=== PATIENT | female | born 1995 | race Caucasian/White ===

== ENCOUNTER 2018-11-27 17:21 | Emergency (ER) | payer BC ==
[2018-11-27 17:41] VITALS: BP 124/65
[2018-11-27] MEDS ORDERED: Ibuprofen TAB* 400 MG PO ONE (18:33)
--- NOTE | 2018-11-27 18:34 | UC ---
Throat Pain/Nasal Gerry HPI - HPI Summary HPI Summary: 23 y/o female presents to the urgent care c/o sore throat and nasal congestion congestion w/ clear nasal discharge, body aches and feels feverish since this morning. Pain w/ swallowing is 6/10 associated w/ mild IBARRA now . Pt has not taken any medications to alleviate symptoms. Pt denies dizziness, SOB, cough, chest pain, abdominal pain, N/V/D or rash. Pt is UTD w/ all vaccines for her age - History of Current Complaint Chief Complaint: UCGeneralIllness Stated Complaint: ST,CONGESTION,FEVER Time Seen by Provider: 11/27/18 18:21 Hx Obtained From: Patient Hx Last Menstrual Period: 3 days ago started ?: No Onset/Duration: Gradual Onset, Lasting Hours - 12 hrs Severity: Moderate Pain Intensity: 6 Pain Scale Used: 0-10 Numeric Cough: None Associated Signs & Symptoms: Positive: Nasal Discharge - clear, Fever. Negative : Dysphagia - Epiglottits Risk Factors Epiglottis Risk Factors: Negative - Allergies/Home Medications Allergies/Adverse Reactions: Allergies Allergy/AdvReac Type Severity Reaction Status Date / Time oxycodone Allergy Swelling Verified 11/27/18 17:42 Of Face,Lips,& Throat Home Medications: Home Medications Norgestimate-Ethinyl Estradiol [Dli-Az-Dcomkgug 0.18/0.215/0.25 mg-25 Mcg] 1 tab PO DAILY 11/27/18 [History Confirmed 11/27/18] PMH/Surg Hx/FS Hx/Imm Hx Previously Healthy: Yes - Pt denies PMHX - Surgical History Surgical History: Yes Surgery Procedure, Year, and Place: Fibroids removed from left breast - Family History Known Family History: Positive: None - Pt denies FMHX - Social History Occupation: Student Lives: With Family Alcohol Use: Rare Substance Use Type: None Smoking Status (MU): Never Smoked Tobacco - Immunization History Vaccination Up to Date: Yes Review of Systems All Other Systems Reviewed And Are Negative: Yes Constitutional: Positive: Fever, Chills Skin: Positive: Negative Eyes: Positive: Negative ENT: Positive: Sore Throat Respiratory: Positive: Negative Cardiovascular: Positive: Negative Gastrointestinal: Positive: Negative Genitourinary: Positive: Negative Motor: Positive: Negative Neurovascular: Positive: Negative Musculoskeletal: Positive: Negative Neurological: Positive: Headache Psychological: Positive: Negative Is Patient Immunocompromised?: No Physical Exam - Summary Physical Exam Summary: VITAL SIGNS: Reviewed. GENERAL: Patient is a well developed and nourished female adolescent who is sitting comfortable in the examining table. Patient is not in any acute respiratory distress. HEAD AND FACE: No signs of trauma. No ecchymosis, hematomas or skull depressions. No sinus tenderness. EYES: PERRLA, EOMI x 2, No injected conjunctiva, no nystagmus. No photophobia. EARS: Hearing grossly intact. Ear canals and tympanic membranes are within normal limits. MOUTH: Positive pharynx with erythema, exudates, palatal petechiae. B/L tonsillar enlargement with exudate. Uvula in midline. NECK: Supple, trachea is midline, Positive anterior cervical lymphadenopathy, no JVD, no carotid bruit, no c-spine tenderness, neck with full ROM. No meningeal signs, no Kernig's or brudzinskis signs. CHEST: Symmetric, no tenderness at palpation LUNGS: Clear to auscultation bilaterally. No wheezing or crackles. CVS: Regular rate and rhythm, S1 and S2 present, no murmurs or gallops appreciated. ABDOMEN: Soft, non-tender. No signs of distention. No rebound no guarding, and no masses palpated. Bowel sounds are normal. EXTREMITIES: FROM in all major joints, no edema, no cyanosis or clubbing. NEURO: Alert and oriented x 3. No acute neurological deficits. Speech is normal and follows commands. SKIN: Dry and warm Triage Information Reviewed: Yes Vital Signs: Initial Vital Signs Temp 101.1 F 11/27/18 17:36 Pulse 87 11/27/18 17:36 Resp 18 11/27/18 17:36 BP 124/65 11/27/18 17:36 Pulse Ox 100 11/27/18 17:36 Throat Pain/Nasal Course/Dx - Course Course Of Treatment: 23 y/o female presents to the urgent care c/o sore throat and nasal congestion congestion w/ clear nasal discharge, body aches and feels feverish since this morning. Pain w/ swallowing is 6/10 associated w/ mild IBARRA now . Pt has not taken any medications to alleviate symptoms. Pt denies dizziness, SOB, cough, chest pain, abdominal pain, N/V/D. Pt is UTD w/ all vaccines for her age or rash. Hx obtained. Pt is febrile and hemodynamically stable w/ pharyngitis on examination. Pt given Ibuprofen PO by the nurse for fever and pain. Pt tolerated well medication and symptoms improve. RApid strep: negative. viral pharyngitis. Monospot and CBC ordered. Pt will be notified of any abnormality. Pt Rx ibuprofen PO to alleviates symptoms of pain and swelling. Advised on hand washing to avoid spreading. Pt advised to rest, eat well and avoid strenuous exercise. If symptoms do not improve or worsen advised to return to the urgent care or f/u with her PCP for further evaluation and treatment. Pt understood and agreed - Differential Dx/Diagnosis Differential Diagnosis/HQI/PQRI: Laryngitis, Mononucleosis, Pharyngitis, Tonsillitis, URI Provider Diagnosis: Acute viral pharyngitis, Fever Discharge - Sign-Out/Discharge Documenting (check all that apply): Patient Departure - D/C home All imaging exams completed and their final reports reviewed: No Studies - Discharge Plan Condition: Stable Disposition: HOME Prescriptions: Ibuprofen TAB* [Motrin TAB* 800 MG] 800 mg PO Q6H PRN #30 tab PRN Reason: sore throat/fever Patient Education Materials: Pharyngitis (ED) Forms: *Work Release Referrals: [facility] [Outside] - 3 Days Additional Instructions: 1-Please take ibuprofen PO q6-8hrs prn as instructed after meals to alleviate pain and swelling. Increase fluid intake, eat well, rest and avoid strenuous exercise. 2- Monospot and CBC ordered and sent to lab. You will be notified of any abnormal result 3-If symptoms do not improve or worsen please return to the urgent care or f/u with your PCP for further evaluation and treatment. - Billing Disposition and Condition Condition: STABLE Disposition: Home
[2018-11-28 11:22] LABS: Hematocrit 41 % (35-47); Hemoglobin 13.8 g/dL (12.0-16.0); Mean Corpuscular HGB Conc 33 g/dL (31-36); Mean Corpuscular Hemoglobin 31 pg (27-31); Mean Corpuscular Volume 92 fL (80-97); Mean Platelet Volume 9.6 fL (7.4-10.4); Platelet Count 198 10^3/uL (150-450); Red Cell Distribution Width 13 % (10-15); White Blood Count 13.9 10^3/uL (3.5-10.8)
[2018-11-28 12:22] LABS: ABS Eosinophils 0.1 10^3/ul (0-0.6); ABS Lymphocytes 0.9 10^3/ul (1.0-4.8); ABS Monocytes 0.7 10^3/ul (0-0.8); ABS Neutrophils 12.1 10^3/ul (1.5-7.7); Eosinophil % 0.8 %; Lymphocyte % 6.5 %; Nucleated Red Blood Cells % 0.1
== END 2018-11-27 19:06 | disposition home or self-care (01) ==
LOC: UCCORT 17:21
DX: J02.8 Acute pharyngitis due to other specified organisms (principal); R50.9 Fever, unspecified
CPT/HCPCS: 36415; 85025; 86308; 86664; 86665; 87651; 99202; A9270-GY; G0463

== ENCOUNTER 2019-05-03 15:23 | Emergency (ER) | payer BC ==
[2019-05-03 15:35] VITALS: BP 124/64
--- NOTE | 2019-05-03 15:37 | UC ---
UC General HPI - HPI Summary HPI Summary: Pleasant 23 yo female c/o feeling bad - fever (does not have thermometer, but she reports she has been "burning up"), h/a (not wol), bilat earache, sore throat, no cough, no rash, GI. Unk sick contact, but no known sick contact. LMP 15 nov normal Hx mononucleosis + IgG 11/27/18 - History of Current Complaint Chief Complaint: UCGeneralIllness Stated Complaint: THROAT,FEVER Time Seen by Provider: 05/03/19 15:36 Hx Obtained From: Patient Hx Last Menstrual Period: 04/22/19 Pain Intensity: 8 - Allergy/Home Medications Allergies/Adverse Reactions: Allergies Allergy/AdvReac Type Severity Reaction Status Date / Time oxycodone Allergy Swelling Verified 05/03/19 15:35 Of Face,Lips,& Throat Home Medications: Home Medications Sertraline HCl [Zoloft] 25 mg PO DAILY 05/03/19 [History Confirmed 05/03/19] PMH/Surg Hx/FS Hx/Imm Hx Previously Healthy: Yes - Surgical History Surgical History: Yes Surgery Procedure, Year, and Place: Fibroids removed from left breast - Family History Known Family History: Positive: None - Pt denies FMHX - Social History Alcohol Use: Rare Substance Use Type: None Smoking Status (MU): Never Smoked Tobacco - Immunization History Vaccination Up to Date: Yes Review of Systems All Other Systems Reviewed And Are Negative: Yes Constitutional: Positive: Other - see hpi Skin: Positive: Negative Eyes: Positive: Other - see hpi ENT: Positive: Sore Throat, Nasal Discharge, Sinus Congestion, Other - see hpi Respiratory: Positive: Other - see hpi Cardiovascular: Positive: Negative, Other - see hpi Gastrointestinal: Positive: Other - see hpi Genitourinary: Positive: Negative Motor: Positive: Negative Neurovascular: Positive: Negative Musculoskeletal: Positive: Other: - see hpi Neurological: Positive: Headache Psychological: Positive: Negative Is Patient Immunocompromised?: No Physical Exam Triage Information Reviewed: Yes Appearance: Well-Appearing - sitting up, conversing easily. NAD. Nontoxic general appearance., Well-Nourished Vital Signs: Initial Vital Signs Temp 99.6 F 05/03/19 15:31 Pulse 90 05/03/19 15:31 Resp 16 05/03/19 15:31 BP 124/64 05/03/19 15:31 Pulse Ox 99 05/03/19 15:31 Vital Signs Reviewed: Yes Eye Exam: Normal ENT: Positive: Pharyngeal erythema - mild post pharyngeal redness, no sores / exudates, uvula midline, TM dull - TM's bilat dull, Rtx'd Neck exam: Normal Neck: Positive: Supple, Nontender Respiratory Exam: Normal Respiratory: Positive: Chest non-tender, Lungs clear, Normal breath sounds, No respiratory distress, No accessory muscle use Cardiovascular Exam: Normal Cardiovascular: Positive: RRR, No Murmur, Pulses Normal, Brisk Capillary Refill Abdominal Exam: Normal - no cvat Abdomen Description: Positive: Nontender Musculoskeletal Exam: Normal Musculoskeletal: Positive: Strength Intact - gait steady Neurological Exam: Normal - conversing easily and appropriately Psychological Exam: Normal - conversing easily and appropriately Skin Exam: Normal - nondiaphoretic. no visible or reported rash. Course/Dx - Course Course Of Treatment: RST negative Influenza a/b negative Reviewed with pt coa / tx plan. She notes that her mom asked if she could get "blood count" and possibly be checked for thyroid issues. While of course we would be happy to do this, the results of these tests during an acute illness may not be accurate, as such, recommend that she f/u with PCP (Dariana Zepeda) next week. She carefully considered this, and will f/u PCP. Questions as posed answered to the best of my ability. - Diagnoses Provider Diagnosis: Sinusitis Discharge ED - Sign-Out/Discharge Documenting (check all that apply): Patient Departure All imaging exams completed and their final reports reviewed: No Studies - Discharge Plan Condition: Stable Disposition: HOME Prescriptions: Azithromyxin YADIRA (NF) [Z-Yadira (Zithromax) 250 mg tabs #6] 2 tab PO .TODAY, THEN 1 DAILY #6 tab Fluconazole 150 MG TAB* [Diflucan 150 MG TAB*] 150 mg PO DAILY #2 tablet Patient Education Materials: Sinusitis (ED), Serous Otitis Media (ED) Forms: *Work Release Referrals: No Primary Care Phys,NOPCP [Primary Care Provider] - Additional Instructions: Follow up with your [facility] physician - next week if possible. Seek medical attention for worse or new problems in the meantime. Hydrate. Use back up control method during the menstrual cycle in which you are taking antibiotics. Yogurt and / or probiotic daily as discussed. - Billing Disposition and Condition Condition: STABLE Disposition: Home
[2019-05-03 16:08] LABS: Influenza A Molecular NEGATIVE (Negative); Influenza B Molecular NEGATIVE (Negative)
== END 2019-05-03 16:30 | disposition home or self-care (01) ==
LOC: UCCORT 15:23
DX: J32.9 Chronic sinusitis, unspecified (principal); Z88.5 Allergy status to narcotic agent
CPT/HCPCS: 87651; 99212; G0463

== ENCOUNTER 2019-06-05 14:38 | Emergency (ER) | payer BC ==
[2019-06-05 15:11] VITALS: BP 121/73
--- NOTE | 2019-06-05 15:40 | UC ---
Complaint Female HPI - HPI Summary HPI Summary: Pt presents with request for STD testing. Pt states she had unprotected heterosexual intercourse 3 weeks ago. Pt states that she began having painful urination 1 week ago, that has since resolved. Pt states that now she has a yellowish vaginal discharge that occurs when she "uses the bathroom" pt denies fever, chills, irregular vaginal bleeding or pain. - History Of Current Complaint Chief Complaint: UCGU Stated Complaint: PERSONAL Time Seen by Provider: 06/05/19 15:17 Hx Obtained From: Patient Hx Last Menstrual Period: 05/23/20 ?: No Onset/Duration: Sudden Onset, Lasting Days, Resolved Timing: Intermittent - vaginal discharge occurs with urination Severity Initially: Mild Severity Currently: Mild Pain Intensity: 0 Character: Dull, Burning Aggravating Factor(s): Urination Associated Signs And Symptoms: Positive: Vaginal Discharge - Risk Factors Ectopic Risk Factor: Negative Ovarian Torsion Risk Factor: Reproductive Age - Allergies/Home Medications Allergies/Adverse Reactions: Allergies Allergy/AdvReac Type Severity Reaction Status Date / Time oxycodone Allergy Swelling Verified 06/05/19 15:05 Of Face,Lips,& Throat Home Medications: Home Medications O C 1 tab PO QPM 06/05/19 [History Confirmed 06/05/19] PMH/Surg Hx/FS Hx/Imm Hx Previously Healthy: Yes - Surgical History Surgical History: Yes Surgery Procedure, Year, and Place: Fibroids removed from left breast - Family History Known Family History: Positive: None - Pt denies FMHX - Social History Occupation: Student - [employer] Lives: With Family Alcohol Use: Rare Substance Use Type: None Smoking Status (MU): Never Smoked Tobacco Have You Smoked in the Last Year: No - Immunization History Vaccination Up to Date: Yes Review of Systems All Other Systems Reviewed And Are Negative: Yes Constitutional: Positive: Negative Skin: Positive: Negative Eyes: Positive: Negative ENT: Positive: Negative Respiratory: Positive: Negative Cardiovascular: Positive: Negative Gastrointestinal: Positive: Negative Genitourinary: Positive: Vaginal/Penile Discharge Motor: Positive: Negative Neurovascular: Positive: Negative Musculoskeletal: Positive: Negative Neurological: Positive: Negative Psychological: Positive: Negative Is Patient Immunocompromised?: No Physical Exam Triage Information Reviewed: Yes Vital Signs: Initial Vital Signs Temp 98.5 F 06/05/19 15:07 Pulse 58 01/08/20 15:07 Resp 18 06/05/19 15:07 BP 121/73 06/05/19 15:07 Pulse Ox 100 06/05/19 15:07 Vital Signs Reviewed: Yes Eye Exam: Normal ENT Exam: Normal Dental Exam: Normal Neck exam: Normal Respiratory Exam: Normal Cardiovascular Exam: Normal Abdominal Exam: Normal Abdomen Description: Positive: Nontender Musculoskeletal Exam: Normal Neurological Exam: Normal Psychological Exam: Normal Skin Exam: Normal Complaint Female Dx - Course Course Of Treatment: WE discussed her current symptoms and pt agreed to self swab and testing for STDs GC/Chlamydia with urine. Pt denies any pelvic pain, lesions or irregualr vaginal bleeding. - Differential Dx/Diagnosis Differential Diagnosis/HQI/PQRI: Cervicitis, Pelvic Inflammatory Disease, Sexually Transmitted Disease, Urinary Tract Infection Provider Diagnosis: Vaginal discharge Discharge ED - Sign-Out/Discharge Documenting (check all that apply): Patient Departure All imaging exams completed and their final reports reviewed: No Studies - Discharge Plan Condition: Stable Disposition: HOME Patient Education Materials: Vaginitis (ED) Referrals: Meli Riojas [Primary Care Provider] - If Needed Additional Instructions: Please follow up with your PCP as needed. The tests we ordered today may be completed in 3-4 days. Please note we will call you with any positive results. - Billing Disposition and Condition Condition: STABLE Disposition: Home - Attestation Statements Provider Attestation: I was available for consult. This patient was seen by the DREW. The patient was not presented to, seen by, or examined by me. -Vern
[2019-06-06 14:37] LABS: Chlamydia trachomatis NAA Negative (Negative); Neisseria gonorrhoeae (GC) NAA Negative (Negative)
== END 2019-06-05 15:51 | disposition home or self-care (01) ==
LOC: UCCORT 14:38
DX: N89.8 Other specified noninflammatory disorders of vagina (principal); Z88.5 Allergy status to narcotic agent
CPT/HCPCS: 81003; 87480; 87491; 87510; 87591; 87660; 99211; G0463